=== PATIENT | female | born 1970 | race African-American/Black ===

== ENCOUNTER 2020-06-25 20:51 | Emergency (ER) | payer OTHER ==
[~2020-06-25] VITALS: Ht 180.3 cm; Wt 66.2 kg
[2020-06-25 21:16] VITALS: Ht 180.3 cm; Wt 66.2 kg
[2020-06-25 22:28] VITALS: BP 117/90
== END 2020-06-25 22:28 | disposition home or self-care (01) ==
LOC: ED 20:51
DX: S51.812A Laceration without foreign body of left forearm, initial encounter (principal)
CPT/HCPCS: J2001